=== PATIENT | male | born 1945 | race Caucasian/White ===

== ENCOUNTER 2017-12-05 12:58 | Outpatient (CLI) | payer MEDICARE, BC ==
[~2017-12-05 12:58] MED LIST: Iopamidol 370 76% 100 ML VIAL ONE
--- NOTE | 2017-12-05 15:47 | CT ---
CHEST CT WITH CONTRAST ABDOMEN CT WITH CONTRAST PELVIC CT WITH CONTRAST: Date: 12/05/17 HISTORY: Left shoulder pain. Previous MRI done at [facility]. Patient diagnosed with cance r per patient. COMPARISON: None. TECHNIQUE: Chest, abdomen, and pelvis CT performed with contrast. Coronal reformatted images are submitted for i nterpretation. FINDINGS: There is an enlarged right paratracheal/precarinal lymph node measuring 2.9 x 2.5 cm. Additional none nlarged mediastinal lymph nodes are noted. Heart size is normal. No pericardial effusion. The thoraci c aorta demonstrates atherosclerosis and elongation. No aneurysm or dissection. Coronary artery calci fications are identified. Trachea and central bronchi are patent. There are dependent atelectatic changes in the lung parenchym a. There is a pleural based nodule in the posterior right lower lobe measuring 0.8 cm. A subpleural l ymph node is favored. No pleural effusion or pneumothorax. Intra and extrahepatic portal vein is patent. Unremarkable gallbladder. Liver, spleen, and pancreas h ave a normal appearance. Mild fullness of the left adrenal gland likely due to adrenal hyperplasia. R ight adrenal gland is unremarkable. Exophytic hypodensity emanating from the mid pole of the left kidney has an attenuation coefficient o f 21 Hounsfield units. Evaluation is incomplete. Lesion measures 1.7 cm. There is a mixed echotexture mass in the lower pole of the right kidney measuring 3.0 x 3.9 cm. A solid neoplasm of the right kid anthony is favored. Right renal vein appears to be patent. Bilaterally, no obstructive uropathy. No mesenteric mass, lymphadenopathy, free air, or free fluid. No evidence of bowel obstruction. Ileocecal junction is normal. Scattered fecal material in the nondi stended, nondilated colon. There is evidence of an endovascular stent placed in the distal aorta and in both common iliac arteri es. There is a small focal short segment dissection in the distal aorta just proximal to the aforemen tioned stent. Note, this dissection is in the interface between a second stent that appears to be in the abdominal aorta just superior and inferior to the level of the renal artery origins. There is some hyperdensity in the excluded lumen distally suggesting a component of endovascular leak. Evaluation is limited as the noncontrast sequence is not performed. There are nonspecific posterior right rib fractures involving the 7th rib. There are osseous metastat ic foci in the left aspect of the sternum measuring 3.0 x 3.2 cm, posterior left 9th rib measuring 1. 9 x 1.7 cm, right aspect of the T10 vertebral body, right iliac bone measuring 2.8 x 2.4 cm, and righ t symphysis pubis measuring 2.5 x 2.9 cm. There is a mild S-shaped curvature of the spine. The region of concern noted on MRI from [facility] on 11/24/17 is not adequately excluded on this exam. IMPRESSION: 1. Multifocal osseous metastasis. There does not appear to be a primary lung cancer. However, there is an enlarged mediastinal lymph nodes. There appears to be a solid neoplasm involving the lower cee e of the right kidney. 2. Endovascular stents as described above. Short segment dissection and possible endoleak are favore d. Evaluation is limited by lack of noncontrast sequence. POS: BARBARA
== END 2017-12-05 12:59 | disposition home or self-care (01) ==
LOC: SCSCT 12:58
PROVIDERS: ATTEND Internal Medicine Hematology & Oncology
DX: C79.51 Secondary malignant neoplasm of bone (principal); C64.1 Malignant neoplasm of right kidney, except renal pelvis; R59.0 Localized enlarged lymph nodes; Z95.828 Presence of other vascular implants and grafts
CPT/HCPCS: 71260; 74177

== ENCOUNTER 2018-05-11 07:26 | Outpatient (CLI) | payer MEDICARE, BC ==
[2018-05-11 08:20] LABS: Estimated GFR-MDRD - POC Greater than 90
--- NOTE | 2018-05-11 12:24 | CT ---
CT CHEST WITH IV CONTRAST CT ABDOMEN AND PELVIS WITH IV COTNRAST: DATE: 05/11/2018. HISTORY: Malignant neoplasm left kidney. Followup evaluation. COMPARISON: 12/05/2017. FINDINGS: CT THORAX: Previously described enlarged pretracheal lymph node is again seen measuring 3.3 cm x 2.8 cm and prev iously measured 3 cm x 2.5 cm. There has also been interval enlargement of a subcarinal lymph node m easuring 1.3 cm in short axis dimension, and noted on previous measured 0.7 cm. There has also been interval enlargement of a left hilar lymph node which now measures 1.8 cm in short axis dimension and previously measured 0.9 cm in short axis dimension. There has been interval enlargement of the large soft tissue mass involving the central and left aspe ct of the manubrium which previously measured 3.2 cm transverse x 3 cm LAP and now measures 3.2 cm tr ansverse and 4.1 cm AP. There has been interval enlargement of osseous metastatic lesions with enlargement of a mass in the T 2 vertebral body measuring 1.2 cm and it previously measured 0.9 cm. Lytic lesion within the T4 vert ebral body is again seen and this is also larger in size previously measuring 1.6 cm in greatest dime nsion and previously measured 1 cm in maximal dimension. There has been interval enlargement of a me tastatic lesion within the medial posterior right 9th rib which measures 2.4 cm in greatest dimension and on prior exam measured approximately 1.3 cm. There was a suggestion of a pathological fracture of this region on the prior study which is not seen on this exam. There has been interval enlargemen t of a metastatic lesion within the T11 vertebral body measuring 2 cm in short axis and previously me asured approximately 1.2 cm as well as interval enlargement of a metastatic lesion in the T10 vertebr al body measuring 2.1 cm in maximal dimensions no active disease previously measured 1.5 cm. There i s a metastatic lesion involving the posterolateral 9th rib measuring 2.6 cm x 2.4 cm and previously m easured 1.9 cm x 1.7 cm. Degenerative changes are seen in the thoracic spine. There is dependent atelectasis seen bilaterally. Calcified granuloma is again present in the left up per lobe. The previously described pleural-based nodule posteromedial right lower lobe is again seen and overall unchanged in size measuring 0.9 cm. No additional pulmonary nodule or mass is seen. Vascular calcifications are again seen in the coronary arteries involving the thoracic aorta. There is a small hiatal hernia. CT ABDOMEN AND PELVIS: Subcentimeter too small to characterize hypodense lesion is seen in the posterior dome of the liver. The previously described heterogeneously enhancing inferior pole right renal mass is again present wh ich is stable in size measuring 4.1 cm craniocaudal x 4.1 cm transverse x 2.8 cm AP. Nonobstructing calculi within the inferior pole and mid portion right kidney are again seen. Again noted is an exophytic superior pole left renal cyst with subcentimeter to small to characterize hypodense lesion in the mid portion left kidney. The spleen, pancreas, bilateral adrenal glands, and urinary bladder demonstrate a normal CT appearanc e. Opacified bowel is normal in caliber. Again noted are postsurgical changes related to 6.5 cm transverse x 4.9 cm AP with similar measuremen ts on the prior exam. Again noted is an increased density seen anterior to the proximal iliac limbs of the graft. Precontrast imaging is not obtained, but this could potentially represent endoleak. No enlarged lymph nodes are seen in the abdomen or pelvis. There is prominent right convex scoliosis of the lumbar spine with right lateral subluxation of L3 on L4. No definite lytic or sclerotic lesions are seen within the lumbar spine. There has been interv al enlargement of a metastatic lesion in the right iliac bone just to the right sacroiliac joint carlos uring 4 cm x 3.6 cm that previously measured 2.8 cm x 2.3 cm. There has also been interval enlargeme nt of a metastatic lesion within the right pubic bone measuring 4 cm x 3.8 cm and previously measured 2.9 cm x 2.5 cm. IMPRESSION: 1. Interval progression in metastatic disease with enlargement of several previously seen soft tissu e mildly destructive lesions involving the osseous structures including the manubrium, bilateral ribs , thoracic vertebral bodies, and pelvis. 2. Interval enlargement of mediastinal as well as left hilar lymph nodes. 3. Stable size of heterogeneously enhancing inferior pole right renal mass likely related to renal c ell carcinoma. 4. Nonobstructing right renal calculi and too small to characterize hypodense in the left kidney in additional to left renal cyst. 5. 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 Aneurysm sac diameter is stable. Area of incr eased density adjacent to the proximal portions of each iliac limb of the endograft. Precontrast megan ges are not obtained for further evaluation, but endoleak could not be excluded based on this exam. 6. Stable pleural-based nodular density right lung base. 7. Small hiatal hernia. 8. Suggested thickening in the region of the gastric cardia and fundus of the stomach, but this may be related to incomplete distension and this is difficult to further evaluate on this exam. Dependin g on clinical concern, endoscopy may be helpful for further evaluation. 9. Subcentimeter too small to characterize hypodense lesion which is stable in the posterior dome of the liver. 10. Stable small left thyroid nodule. POS: LAKSHMI
== END 2018-05-11 07:27 | disposition home or self-care (01) ==
LOC: SCSCT 07:26
PROVIDERS: ATTEND Internal Medicine Hematology & Oncology
DX: C64.2 Malignant neoplasm of left kidney, except renal pelvis (principal); C79.51 Secondary malignant neoplasm of bone; R59.0 Localized enlarged lymph nodes; N28.89 Other specified disorders of kidney and ureter; N20.0 Calculus of kidney; Z95.828 Presence of other vascular implants and grafts; R91.8 Other nonspecific abnormal finding of lung field; K44.9 Diaphragmatic hernia without obstruction or gangrene; K76.9 Liver disease, unspecified; E04.1 Nontoxic single thyroid nodule
CPT/HCPCS: 71260; 74177; 82565

== ENCOUNTER 2018-07-09 09:34 | Outpatient (CLI) | payer MEDICARE, BC ==
[2018-07-09 10:13] LABS: Estimated GFR-MDRD - POC Greater than 90
--- NOTE | 2018-07-09 12:23 | CT ---
CT OF THE CHST AND ABDOMEN AND PELVIS WITH IV CONTRAST: DATE: 07/09/2018. PROVIDED CLINICAL HISTORY: Malignant neoplasm of kidney. FINDINGS: Comparison is made with the CT examination performed 05/11/2018. The heart, pericardium, and great vessels demonstrate a stable CT appearance. Enlarged pretracheal a nd left hilar lymph nodes are redemonstrated. The airway appears patent and of normal caliber. Vasc ular calcifications including coronary calcium are again seen. There is a small hiatal hernia. The lungs are free of significant opacity. There is no pleural fluid or pneumothorax apparent. There is redemonstration of right inferior pole solid renal mass compatible with malignancy, without significant change in size. The solid abdominal organs demonstrate a stable CT appearance. There is no bowel dilatation, inflammatory fat stranding, free fluid, or lymph node enlargement apparent. Multiple destructive enhancing lesions involving the regional osseous structures are redemonstrated, without significant interval change in size overall. There has been interval development of a nondis placed pathologic fracture involving the posterolateral left 9th rib adjacent to the previously descr ibed left 9th rib destructive lesion. No definite new osseous lesion is evident. Infrarenal abdominal aortic aneurysm status post endovascular stent graft placement is redemonstrated with previously described foci of increased density within the aortic lumen again demonstrated. IMPRESSION: 1. Interval development of nondisplaced pathologic fracture involving the posterolateral left 9th ri b lesion. 2. Otherwise, no significant interval change with respect to the prior study. POS: TPC
== END 2018-07-09 09:35 | disposition home or self-care (01) ==
LOC: SCSCT 09:34
PROVIDERS: ATTEND Internal Medicine Hematology & Oncology
DX: C64.2 Malignant neoplasm of left kidney, except renal pelvis (principal); C79.51 Secondary malignant neoplasm of bone; M84.48XA Pathological fracture, other site, initial encounter for fracture
CPT/HCPCS: 71260; 74177; 82565

== ENCOUNTER 2018-08-13 09:42 | Outpatient (CLI) | payer MEDICARE, BC ==
--- NOTE | 2018-08-13 10:40 | CT ---
FCT CHEST WITH IV CONTRAST: HISTORY: Renal cell carcinoma with metastatic disease. COMPARISON: 07/09/2018. FINDINGS: The expansile destructive lesion involving the left side of the sternum now measures 4.4 cm x 3.5 cm, where it was previously 4.0 cm x 3.3 cm. Tiny subpleural nodules within the lateral aspect of the ri ght upper lobe are stable. The expansile destructive lesion involving the posterior medial aspect of the right ninth rib is now 3.2 cm, where it was previously 2.8 cm. The large expansile destructive lesion including the patholog ic fracture involving the posterolateral aspect of the left ninth rib is 3.8 cm, where it was previou sly 3.3 cm. Lytic lesions throughout the thoracic spine are overall stable. The precarinal necrotic mediastinal lymph node is now 3.7 cm x 2.8 cm, where it was previously 3.6 cm x 2.9 cm. Aorticopulmonary lymph node, slightly enlarged, is stable. The enlarged left hilar lymph n ode is now 2.5 cm, where it was previously 2.2 cm. Subcarinal lymph node is stable at 1.8 cm. Small hiatal hernia. Prominent arterial calcification. Fusiform lower abdominal aortic aneurysm with internal stent graft partially visualized. IMPRESSION: 1. Slight interval enlargement of the expansile destructive sternal metastasis and bilateral rib mas ses, as detailed above. Thoracic spine lesions have not changed significantly. 2. Slight enlargement of the precarinal and left hilar mediastinal lymph nodes. The other smaller me diastinal adenopathy is stable. Transcribed Date/Time: 08/13/2018 10:47 AM
== END 2018-08-13 09:43 | disposition home or self-care (01) ==
LOC: SCSCT 09:42
PROVIDERS: ATTEND Internal Medicine Hematology & Oncology
DX: R22.2 Localized swelling, mass and lump, trunk (principal); C79.51 Secondary malignant neoplasm of bone; C64.2 Malignant neoplasm of left kidney, except renal pelvis; G95.9 Disease of spinal cord, unspecified
CPT/HCPCS: 71260; Q9967

== ENCOUNTER 2018-08-21 10:23 | Outpatient (CLI) | payer MEDICARE, BC ==
[2018-08-21 11:49] LABS: Estimated GFR-MDRD - POC Greater than 90
--- NOTE | 2018-08-21 13:24 | MRI ---
MRI RIGHT HIP WITH AND WITHOUT IV CONTRAST: Date: 08-21-18 Provided Clinical History: Renal cell carcinoma with bone mets, pain status post injury. FINDINGS: Correlation is made with the CT examination of the chest, abdomen, and pelvis performed 07-09-18. Destructive enhancing lesions involving the right pubic body and medial right iliac bone are demonstr ated, not significantly changed in size with respect to the CT examination. There is no evidence for associated pathologic fracture in these regions. There is extraosseous extension of the right pubic l esion, displacing/invading the right adductor musculature. There is increased signal intensity on flu id sensitive sequences involving the right obturator musculature without corresponding contrast enhan cement. There is patchy noncircumscribed signal alteration on fluid sensitive sequences and T1 weighted seque nces involving the posterior aspect of the right acetabulum. There is associated contrast enhancement . This does not appear similar to the bone lesions present. The amount of fluid within the right hip joint appears physiologic. Degenerative changes are seen involving the right hip with subcortical cys t like change seen within the roof of the acetabulum. The right abductor, adductor, flexor and hamstring tendons demonstrate an intact MR appearance. IMPRESSION: 1. Known metastatic lesions in the right pubic body and right iliac bone without evidence for patholo gic fractures in these regions. 2. Patchy bone marrow signal alteration involving the posterior aspects of the right acetabulum, whic h may reflect contusion. 3. Patchy noncircumscribed signal alteration involving the right obturator musculature, which could r eflect muscular strain or denervation. 4. Right hip degenerative change. POS: TPC
== END 2018-08-21 10:24 | disposition home or self-care (01) ==
LOC: SCSMRI 10:23
PROVIDERS: ATTEND Internal Medicine Hematology & Oncology
DX: M25.551 Pain in right hip (principal); C79.51 Secondary malignant neoplasm of bone; C64.2 Malignant neoplasm of left kidney, except renal pelvis; M16.11 Unilateral primary osteoarthritis, right hip
CPT/HCPCS: 82565

== ENCOUNTER 2018-10-12 09:37 | Outpatient (CLI) | payer MEDICARE, BC ==
--- NOTE | 2018-10-12 10:56 | CT ---
EXAM: CT chest, abdomen, and pelvis with IV contrast: HISTORY: Malignant neoplasm left kidney with metastatic disease. COMPARISON: CT thorax on 08/13/[address] chest, abdomen, and pelvis on 07/09/2018 FINDINGS: CT THORAX: Lungs: Minimal biapical pleural-parenchymal scarring is present. Calcified granuloma in the left uppe r lobe is again present. Pleural-based nodular density posterior medial aspect right lower lobe (image 31, series 5) is again seen and unchanged in size. No additional pulmonary nodule is identifie d. Pleura: No pleural effusion. Lymph nodes: There are stable mediastinal and hilar lymph nodes present. Large precarinal lymph node measures 3.6 cm x 3.1 cm with subcarinal lymph node measuring 1.6 in meters in short axis dimension, left hilar lymph node measures 2.4 cm in short axis dimension, and there is mildly heterog eneous lymph node in the prevascular space measuring 1 cm in short axis dimension. No new enlarged mediastinal or hilar lymph nodes are seen. Mediastinum: Vascular calcifications are seen in the coronary arteries and involving the thoracic aor ta and origin of great vessels. Chest wall: There is a destructive enhancing mass involving the sternum which measures 5 cm x 4.6 cm with previous measurements of 4.5 cm x 4.3 cm. Expansile lesion involving the posterior medial right ninth rib is stable in size compared to recent study on 08/13/2018 with stable destructive lesion involving the left ninth rib was with associated pathological fracture is again seen There is overall stable scattered lytic metastatic lesions involving the thoracic vertebral bodies. No new osseous metastatic lesions are seen in the chest. CT ABDOMEN AND PELVIS: Liver: There is a subcentimeter too small to characterize hypodense lesions seen within the right hep atic lobe unchanged in size or appearance compared to prior studies. The liver otherwise has normal CT appearance. Gallbladder: Decompressed.\ Pancreas: Within normal limits. Spleen: Within normal limits. Adrenal glands: Mild thickening asymmetrically greater on the left which may be related to adrenal hy perplasia. No discrete nodule is present. Kidneys: Stable enhancing inferior pole right renal mass greatest transverse measurement of 3.8 cm. S table exophytic cyst superior pole left kidney is again seen with stable subcentimeter too small to characterize hypodense lesion in the midportion left kidney. Nonobstructing right renal calculus is a gain present. Urinary Bladder: Decompressed but otherwise grossly within normal limits. Reproductive organs: Heterogeneity of the prostate gland with prostate calcifications Bowel: There is evidence of a small hiatal hernia. There does appear to be mild bowel wall thickening involving the region of the hepatic flexure, this could be attributable to incomplete distention. There are nonspecific mildly dilated loops of proximal jejunum in the left upper quadrant. Similar fi nding was seen on study of 07/09/2018. There is no abrupt transition point to suggest small bowel obstruction. Abdominal aorta: Again noted are postsurgical changes related to endograft repair of abdominal aortic aneurysm. The aneurysm sac measures 6.1 cm transverse by 5 cm AP which is stable compared to the prior exam. There is angulation of the abdominal aorta, and there is suggestion of separation of the modular components of the endograft, but this is a stable finding dating back to study on 12/05/2017. Clinical correlation is recommended. Adenopathy:No lymphadenopathy within the abdomen or pelvis. Peritoneum: No free fluid or fluid collection is seen. No free intraperitoneal gas is identified. Abdominal wall: No abnormalities seen. Osseous structures: There is an enhancing destructive metastatic lesion seen in the posterior right i lium measuring 4.2 cm x 4.2 cm with previous measurement of 4 cm times 3.4 cm. Lytic destructive enhancing lesion in the right pubic bone is again seen and overall similar in size and appearance. Th is measures approximately 4 cm. Tiny subcentimeter lytic lesion in the right lateral L1 vertebral body is stable. IMPRESSION: 1. Multiple osseous metastatic lesions majority which are stable in size with slight interval increas e in size of some of the lesions. There is overall stable mediastinal and hilar lymphadenopathy related to metastatic disease. 2. Enhancing mass inferior pole right kidney likely attributable to renal cell carcinoma. 3. abdominal aortic aneurysm with evidence of an endograft in place. However the iliac limbs of the g raft do not appear to be associated with the more proximal portion of the endograft suggesting separation of the nodular components. However clinical correlation is recommended. This is an overall stable finding compared to study on 12/05/2017. Aneurysm sac diameter is unchanged measuring 6.1 cm x 5 cm. 4. Suggested mild thickening the region of the hepatic flexure. This may be related to incomplete dis tention. There is also mild nonspecific dilatation of loops of proximal jejunum. Similar finding was seen on exam of 07/09/2018.
== END 2018-10-12 09:38 | disposition home or self-care (01) ==
LOC: SCSCT 09:37
PROVIDERS: ATTEND Internal Medicine Hematology & Oncology
DX: C64.2 Malignant neoplasm of left kidney, except renal pelvis (principal); C79.51 Secondary malignant neoplasm of bone; R59.0 Localized enlarged lymph nodes; I71.4 Abdominal aortic aneurysm, without rupture; N28.89 Other specified disorders of kidney and ureter; Z95.828 Presence of other vascular implants and grafts
CPT/HCPCS: 71260; 74177

== ENCOUNTER 2019-02-06 09:48 | Outpatient (CLI) | payer MEDICARE, BC ==
--- NOTE | 2019-02-06 12:17 | CT ---
CT Brain W WO Con: 02/06/2019 12:00 AM CLINICAL HISTORY: Malignant neoplasm, left kidney, difficulty thinking. COMPARISON: Brain MRI 12/21/2017 is referenced FINDINGS: Hemorrhage: None. Ventricular system: Normal in size and morphology for the patient's age. Cerebral parenchyma: Microvascular ischemic disease. Chronic lacunar infarction of the left lentiform nucleus. No pathologic intra-axial enhancement. Linear enhancement related to developmental venous anomaly is seen at the inferior left frontal lobe. Midline shift: None. Mass: No acute mass effect. Stable arachnoid cyst of the posterior fossa. Calvarium: Normal. Visualized Paranasal sinuses: Clear. IMPRESSION: No acute intracranial abnormalities. Chronic ischemic disease.
== END 2019-02-06 09:49 | disposition home or self-care (01) ==
LOC: SCSCT 09:48
PROVIDERS: ATTEND Internal Medicine Hematology & Oncology
DX: C64.2 Malignant neoplasm of left kidney, except renal pelvis (principal); C79.51 Secondary malignant neoplasm of bone; I67.82 Cerebral ischemia
CPT/HCPCS: 70470; Q9967

== ENCOUNTER 2019-04-09 09:25 | Outpatient (CLI) | payer MEDICARE, BC ==
--- NOTE | 2019-04-09 13:28 | CT ---
EXAM: CT of the chest with contrast CT of the abdomen and pelvis with contrast HISTORY: Left renal cell cancer with metastatic disease COMPARISON: 10/12/2018 TECHNIQUE: 1. Multiple contiguous axial images were obtained in a CT the chest with contrast. Coronal and sagitt al reformats were performed. 2. Multiple contiguous axial images were obtained and a CT of the abdomen and pelvis with contrast. C oronal and sagittal reformats were performed. FINDINGS: CT CHEST: HEART: Normal in size without focal cardiac abnormality MEDIASTINUM: No hilar or mediastinal lymphadenopathy. LUNGS: There is a new well-circumscribed 9 mm nodule in the right middle lobe. Emphysematous changes. PLEURAL SPACE: No pneumothorax or pleural effusion. CHEST WALL SOFT TISSUES: Unremarkable CT ABDOMEN/PELVIS: ABDOMEN: LIVER: within normal limits. BILE DUCTS: Normal caliber. GALLBLADDER: No calcified gallstones. Normal caliber wall. PANCREAS: within normal limits. SPLEEN: within normal limits. ADRENALS: within normal limits. KIDNEYS: The right renal mass has become more cystic and has decreased in size measuring 2.7 cm in gr eatest dimension. Small hypodensities in both kidneys likely represent cysts. PELVIS: REPRODUCTIVE ORGANS: No pelvic masses. URETERS: within normal limits. BLADDER: within normal limits. PERITONEUM: No ascites or free air, no fluid collection. BOWEL: Normal caliber. MESENTERY AND RETROPERITONEUM: No enlarged mesenteric or retroperitoneal lymph nodes. VESSELS: There is stable aneurysmal dilatation of the infrarenal aorta. The patient is status post en dograft repair with separation of the stent graft components. The aorta measures 6.0 cm in greatest diameter. ABDOMINAL WALL: within normal limits. OSSEOUS STRUCTURES: Numerous lytic lesions are seen throughout the skeleton. These involve the bones of the pelvis, sternum, thoracic vertebral bodies, and bilateral ribs. These are stable compared to the prior exam. IMPRESSION: 1. Decreased size of right renal mass 2. New right middle lobe pulmonary nodule. 3. Stable osseous metastatic disease. 4. Abdominal aortic aneurysm status post stent graft repair with separation of the stent graft compon ents
== END 2019-04-09 09:26 | disposition home or self-care (01) ==
LOC: SCSCT 09:25
PROVIDERS: ATTEND Internal Medicine Hematology & Oncology
DX: C79.51 Secondary malignant neoplasm of bone (principal); C64.2 Malignant neoplasm of left kidney, except renal pelvis; N28.89 Other specified disorders of kidney and ureter; I71.4 Abdominal aortic aneurysm, without rupture; R91.1 Solitary pulmonary nodule; Z98.890 Other specified postprocedural states
CPT/HCPCS: 71260; 74177